=== PATIENT | male | born 1995 | race African-American/Black ===

== ENCOUNTER 2016-07-24 12:01 | Inpatient (IN) | payer OTHER ==
[~2016-07-24] VITALS: Ht 177.8 cm; Wt 103.2 kg
[2016-07-24] MEDS ORDERED: ONDANSETRON HCL 4 MG/2 ML VIAL IV ONE (12:45)
[2016-07-24] MEDS ORDERED: SODIUM CHLORIDE 0.9% 500 ML IV ONE (12:45)
[2016-07-24] MEDS ORDERED: hydrALAZINE HCL 20 MG/ML VL IV ONE ×3 (12:45→17:30)
[2016-07-24 13:08] LABS: INR 1.07 (0.9-1.15); Partial Thromboplastin Time 29.2 sec (22.64-33.71)
[2016-07-24 13:15] LABS: Basophils # (auto) 0 uL; Basophils % (auto) 0.3 % (0.0-2.0); Eosinophils # (auto) 0.1 uL; Eosinophils % (auto) 0.7 % (0.0-7.0); Hematocrit 31.4 % (41.0-53.0); Hemoglobin 10.5 g/dL (13.5-17.5); Lymphocytes # (auto) 1.1 uL; Lymphocytes % (auto) 12.7 % (10.0-50.0); Mean Corpuscular Hemoglobin 29.3 pg (28.0-32.0); Mean Corpuscular Hgb Conc. 33.5 g/dL (32.0-36.0); Mean Corpuscular Volume 87.2 fL (80.0-100.0); Monocytes # (auto) 0.7 uL; Monocytes % (auto) 7.4 % (0.0-12.0); Neutrophils # (auto) 7.1 uL; Neutrophils % (auto) 78.9 % (37.0-80.0); Red Cell Distribution Width 16.1 % (11.6-16.0)
[2016-07-24 13:21] LABS: Albumin 3.2 g/dL (3.4-5.0); BUN/Creatinine Ratio 7.2; Bilirubin, Total 1.3 mg/dL (0.2-1.0); Calcium 9.2 mg/dL (8.5-10.1); Total Protein 7.2 g/dL (6.4-8.2)
[2016-07-24 13:26] LABS: Potassium 2.8 mmol/L (3.5-5.1)
[2016-07-24 13:30] LABS: B-Type Natriuretic Peptide 1837.39 pg/mL (0-100); Temperature: 22.2 C (20.0-25.0)
[2016-07-24 13:33] LABS: Mean Platelet Volume 9.3 fL (7.4-10.4)
[2016-07-24 13:34] LABS: Platelet Count (auto) 67 10^3/uL (140-450)
[2016-07-24 13:36] LABS: Magnesium 2.5 mg/dL (1.6-2.6)
[2016-07-24] MEDS ORDERED: hydrALAZINE HCL 20 MG/ML VL ONE (14:08)
[2016-07-24] MEDS ORDERED: NITROGLYCERIN 50MG/250ML 250 ML IV ONE ×2 (15:05→15:15)
[2016-07-24] MEDS ORDERED: TEMAZEPAM 15 MG CAP PO PRN (15:15)
[2016-07-24] MEDS ORDERED: LORazepam 0.5 MG TAB PO PRN (15:15)
[2016-07-24] MEDS ORDERED: PROMETHAZINE HCL 25 MG/ML 1ML IV PRN (15:15)
[2016-07-24] MEDS ORDERED: MORPHINE SULF INJ 2 MG/ML SYRINGE 1ML IV PRN (15:15)
[2016-07-24] MEDS ORDERED: HYDROcodone-ACET 5/325MG TAB PO PRN (15:15)
[2016-07-24] MEDS ORDERED: LACTULOSE 20Gm/30ML SOLN PO PRN (15:15)
[2016-07-24] MEDS ORDERED: ACETAMINOPHEN 500 MG TAB PO PRN (15:15)
[2016-07-24] MEDS ORDERED: NITROGLYCERIN 0.4 MG SL TAB SL PRN (15:15)
[2016-07-24] MEDS ORDERED: ENALAPRIL MALEATE 10 MG TAB PO ONE (15:30)
[2016-07-24] MEDS ORDERED: ASPirin 81 mg TAB PO ONE (15:30)
[2016-07-24] MEDS ORDERED: ENOXAPARIN SOD 30 MG/0.3 ML SYRINGE SC ONE (15:30)
[2016-07-24] MEDS: NITROGLYCERIN 50MG/250ML 250 ML IV SCH (15:31)
[2016-07-24 15:41] LABS: Urine Bilirubin Negative (Negative); Urine Color Yellow (Yellow); Urine Glucose Normal (Normal); Urine Ketone Negative (Negative); Urine Nitrite Negative (Negative); Urine RBC 9 /hpf (0 - 3); Urine Urobilinogen Normal (Negative); Urine pH 6.5 (5.0-8.0)
[2016-07-24 16:02] LABS: Urine Blood 2+ /uL (Negative)
[2016-07-24] MEDS ORDERED: NICARDIPINE 25MG/250ML BAG KIT 250 ML IV SCH (17:30)
[2016-07-24] MEDS: MORPHINE SULF INJ 2 MG/ML SYRINGE 1ML IV PRN ×2 (17:39→18:22)
[2016-07-24] MEDS: NICARDIPINE 25MG/250ML BAG KIT 250 ML IV SCH ×2 (18:00→20:29)
[2016-07-24] MEDS: METOPROLOL TARTRATE 25 MG TAB PO SCH (22:00)
[2016-07-24] MEDS: ATORVASTATIN 20 MG TAB PO SCH (22:18)
[2016-07-25] MEDS: NICARDIPINE 25MG/250ML BAG KIT 250 ML IV SCH ×5 (05:26→23:30)
[2016-07-25 06:31] LABS: Basophils # (auto) 0 uL; Basophils % (auto) 0.2 % (0.0-2.0); Eosinophils # (auto) 0 uL; Eosinophils % (auto) 0.5 % (0.0-7.0); Hematocrit 31.5 % (41.0-53.0); Hemoglobin 10.6 g/dL (13.5-17.5); Lymphocytes # (auto) 0.8 uL; Lymphocytes % (auto) 8.5 % (10.0-50.0); Mean Corpuscular Hemoglobin 29.2 pg (28.0-32.0); Mean Corpuscular Hgb Conc. 33.6 g/dL (32.0-36.0); Mean Platelet Volume 9.4 fL (7.4-10.4); Monocytes # (auto) 0.7 uL; Monocytes % (auto) 7.2 % (0.0-12.0); Neutrophils # (auto) 7.6 uL; Neutrophils % (auto) 83.6 % (37.0-80.0); Platelet Count (auto) 94 10^3/uL (140-450); Red Cell Distribution Width 16.8 % (11.6-16.0)
[2016-07-25 06:55] LABS: Albumin 2.9 g/dL (3.4-5.0); BUN/Creatinine Ratio 7.6; Bilirubin, Total 0.7 mg/dL (0.2-1.0); Calcium 8.8 mg/dL (8.5-10.1); Total Protein 6.7 g/dL (6.4-8.2)
[2016-07-25 06:58] LABS: Potassium 2.9 mmol/L (3.5-5.1)
[2016-07-25] MEDS ORDERED: POTASSIUM CHL 20 Meq TABLET PO ONE (07:00)
[2016-07-25] MEDS ORDERED: ENALAPRIL MALEATE 10 MG TAB PO SCH ×2 (10:00)
[2016-07-25] MEDS ORDERED: ENOXAPARIN SOD 30 MG/0.3 ML SYRINGE SC SCH (10:00)
[2016-07-25] MEDS ORDERED: ASPirin 81 mg TAB PO SCH (10:00)
[2016-07-25] MEDS: METOPROLOL TARTRATE 25 MG TAB PO SCH ×2 (10:18→22:11)
[2016-07-25] MEDS ORDERED: cefTRIAXone 1GM/50ML D5W 50 ML IV ONE (10:45)
[2016-07-25] MEDS ORDERED: cloNIDine HCL 0.1 MG TAB PO PRN (11:00)
[2016-07-25 12:42] LABS: Basophils # (auto) 0 uL; Basophils % (auto) 0.1 % (0.0-2.0); Eosinophils # (auto) 0.1 uL; Eosinophils % (auto) 0.8 % (0.0-7.0); Hematocrit 31.7 % (41.0-53.0); Hemoglobin 10.6 g/dL (13.5-17.5); Lymphocytes # (auto) 0.9 uL; Lymphocytes % (auto) 9.4 % (10.0-50.0); Mean Corpuscular Hemoglobin 29.3 pg (28.0-32.0); Mean Corpuscular Hgb Conc. 33.3 g/dL (32.0-36.0); Monocytes # (auto) 0.8 uL; Monocytes % (auto) 8.8 % (0.0-12.0); Neutrophils # (auto) 7.7 uL; Neutrophils % (auto) 80.9 % (37.0-80.0); Platelet Count (auto) 112 10^3/uL (140-450); Red Cell Distribution Width 16.5 % (11.6-16.0); White Blood Cell 9.6 10^3/uL (4.4-10.8)
[2016-07-25] MEDS ORDERED: HEPARIN SODIUM (PORCINE) 5000 UNITS/ML 1ML VIAL IV ONE ×2 (12:45→21:45)
[2016-07-25] MEDS ORDERED: HEPARIN DRIP/D5W 100UNITS/ML 250 ML IV SCH (12:45)
[2016-07-25 12:55] LABS: INR 1.11 (0.9-1.15); Partial Thromboplastin Time 30.4 sec (22.64-33.71); Prothrombin Time 11.4 sec (9.37-12.3)
[2016-07-25] MEDS: BOOST PLUS 8 ounce PO SCH ×3 (13:05→22:00)
[2016-07-25] MEDS: NITROGLYCERIN 50MG/250ML 250 ML IV SCH (15:15)
[2016-07-25 20:29] LABS: BUN/Creatinine Ratio 7.9; Calcium 8.1 mg/dL (8.5-10.1); Potassium 3.1 mmol/L (3.5-5.1)
[2016-07-25] MEDS: ATORVASTATIN 20 MG TAB PO SCH (22:11)
[2016-07-26] VITALS (59 sets, daily range): BP systolic 128–203; BP diastolic 46–126
[2016-07-26 00:41] LABS: INR 1.07 (0.9-1.15); Partial Thromboplastin Time 43.1 sec (22.64-33.71)
[2016-07-26] MEDS: BOOST PLUS 8 ounce PO SCH ×2 (06:00→12:00)
[2016-07-26] MEDS ORDERED: HEPARIN DRIP/D5W 100UNITS/ML 250 ML IV SCH ×2 (06:30→07:56)
[2016-07-26 06:37] LABS: Basophils # (auto) 0 uL; Basophils % (auto) 0.3 % (0.0-2.0); Eosinophils # (auto) 0.2 uL; Hematocrit 31.8 % (41.0-53.0); Hemoglobin 10.7 g/dL (13.5-17.5); Lymphocytes # (auto) 1.8 uL; Lymphocytes % (auto) 21.9 % (10.0-50.0); Mean Corpuscular Hemoglobin 29.4 pg (28.0-32.0); Mean Corpuscular Hgb Conc. 33.7 g/dL (32.0-36.0); Mean Corpuscular Volume 87.2 fL (80.0-100.0); Mean Platelet Volume 10.6 fL (7.4-10.4); Monocytes # (auto) 0.7 uL; Monocytes % (auto) 8.7 % (0.0-12.0); Neutrophils # (auto) 5.6 uL; Neutrophils % (auto) 67.1 % (37.0-80.0); Platelet Count (auto) 139 10^3/uL (140-450); Red Cell Distribution Width 16.7 % (11.6-16.0); White Blood Cell 8.3 10^3/uL (4.4-10.8)
[2016-07-26 06:52] LABS: INR 1.06 (0.9-1.15); Partial Thromboplastin Time 31.1 sec (22.64-33.71); Prothrombin Time 10.9 sec (9.37-12.3)
[2016-07-26 07:18] LABS: Albumin 2.6 g/dL (3.4-5.0); BUN/Creatinine Ratio 8.1; Bilirubin, Direct 0.1 mg/dL (0-0.2); Bilirubin, Total 0.5 mg/dL (0.2-1.0); Calcium 8.5 mg/dL (8.5-10.1); Phosphorus 6.4 mg/dL (2.5-4.90); Potassium 3.3 mmol/L (3.5-5.1); Total Protein 6.1 g/dL (6.4-8.2); Uric Acid 9.3 mg/dL (3.5-7.2)
[2016-07-26] MEDS ORDERED: HEPARIN SODIUM (PORCINE) 5000 UNITS/ML 1ML VIAL SC ONE (08:00)
[2016-07-26 08:37] LABS: Urine Bilirubin Negative (Negative); Urine Color Yellow (Yellow); Urine Glucose Normal (Normal); Urine Ketone Negative (Negative); Urine Nitrite Negative (Negative); Urine RBC 1 /hpf (0 - 3); Urine Urobilinogen Normal (Negative)
[2016-07-26 08:46] LABS: Urine Blood 1+ /uL (Negative)
[2016-07-26] MEDS ORDERED: cefTRIAXone 1GM/50ML D5W 50 ML IV SCH (09:00)
[2016-07-26] MEDS: METOPROLOL TARTRATE 25 MG TAB PO SCH ×2 (09:46→21:58)
[2016-07-26] MEDS: NICARDIPINE 25MG/250ML BAG KIT 250 ML IV SCH (10:30)
[2016-07-26] MEDS ORDERED: IODIXANOL 320MG/ML 100ML BTL IV ONE (11:50)
[2016-07-26] MEDS ORDERED: LIDOCAINE 2%HCL (LOCAL ANESTH.) INJ 20ML MDV ONE (11:50)
[2016-07-26] MEDS ORDERED: MIDAZOLAM HCL 1MG/1ML-2 ML VIAL ONE (12:11)
[2016-07-26] MEDS ORDERED: ANGIOMAX 250 MG VIAL IV ONE (12:12)
[2016-07-26] MEDS ORDERED: fentaNYL CITRATE 100 MCG/2 ML VL ONE (12:12)
[2016-07-26] MEDS ORDERED: SODIUM CHL 0.9% 0 ML ONE (12:13)
[2016-07-26] MEDS ORDERED: amLODIPine BESYLATE 5 MG TAB PO ONE (13:45)
[2016-07-26] MEDS: hydrALAZINE HCL 25 MG TAB PO SCH ×2 (14:40→21:58)
[2016-07-26] MEDS ORDERED: POTASSIUM CHLORIDE 8 MEQ TAB PO ONE (15:15)
[2016-07-26] MEDS: ATORVASTATIN 20 MG TAB PO SCH (21:58)
[2016-07-27 05:10] LABS: Thyroid Peroxidase (TPO) Ab <6 IU/mL (0-34)
[2016-07-27] MEDS ORDERED: amLODIPine BESYLATE 5 MG TAB PO SCH (10:00)
[2016-07-27 19:06] LABS: Sjogren's Anti-SS-A Antibody <0.2 AI (0.0-0.9)
[2016-07-28 09:07] LABS: Anti-intermyofibrillar Ab Negative (Neg:<1:20); Anti-sarcolemma Antibody Negative (Neg:<1:20)
[2016-07-28 11:02] LABS: Hepatitis B Surface Antibody Negative
[2016-07-28 12:08] LABS: Antiproteinase 3 (PR-3) Ab <3.5 U/mL (0.0-3.5)
[2016-07-29 05:08] LABS: Albumin Urine 55.6 % (.); Gamma Globulin Urine 17.3 % (.)
== END 2016-07-26 21:57 | disposition short-term general hospital (02) | DRG 280 ==
LOC: EDSEX 12:01 → ER 12:01 → TELE 12:02 → ICU WEST 07-25 23:58
PROVIDERS: ADMIT Internal Medicine; ATTEND Internal Medicine
PROC: 4A023N7 Measurement of Cardiac Sampling and Pressure, Left Heart, Percutaneous Approach (ICD-10-PCS; principal; 2016-07-26)
PROC: B211YZZ Fluoroscopy of Multiple Coronary Arteries using Other Contrast (ICD-10-PCS; 2016-07-26)
DX: I21.4 Non-ST elevation (NSTEMI) myocardial infarction (principal); N18.6 End stage renal disease; N17.9 Acute kidney failure, unspecified; I50.42 Chronic combined systolic (congestive) and diastolic (congestive) heart failure; I13.2 Hypertensive heart and chronic kidney disease with heart failure and with stage 5 chronic kidney disease, or end stage renal disease; N39.0 Urinary tract infection, site not specified; D69.6 Thrombocytopenia, unspecified; D63.8 Anemia in other chronic diseases classified elsewhere; E87.6 Hypokalemia; F15.90 Other stimulant use, unspecified, uncomplicated; I16.0 Hypertensive urgency; Z82.49 Family history of ischemic heart disease and other diseases of the circulatory system; Z83.3 Family history of diabetes mellitus; Z84.1 Family history of disorders of kidney and ureter
CPT/HCPCS: 36415; 70450; 71010; 74176; 76775; 80048; 80053; 80061; 80076; 81001; 82306; 82533; 82550; 82570; 83520; 83540; 83550; 83615; 83735; 83874; 83880; 83970; 84100; 84156; 84166; 84300; 84443; 84484; 84550; 85025; 85045; 85610; 85652; 85730; 86141; 86160; 86225; 86235; 86256; 86703; 86704; 86706; 86708; 86803; 87081; 87086; 87340; 93005; 93306; 94761; 96361; 96374; 96375; 96376; G0434; J0696; J2250; J2405; Q9967

== ENCOUNTER 2016-08-17 21:27 | Emergency (ER) | payer OTHER ==
[~2016-08-17] VITALS: Ht 190.5 cm; Wt 99.8 kg
[2016-08-17 22:10] LABS: Basophils # (auto) 0 uL; Eosinophils # (auto) 0 uL; Eosinophils % (auto) 0.6 % (0.0-7.0); Hematocrit 30.3 % (41.0-53.0); Hemoglobin 10.2 g/dL (13.5-17.5); Lymphocytes # (auto) 0.5 uL; Lymphocytes % (auto) 5.8 % (10.0-50.0); Mean Corpuscular Hemoglobin 29.6 pg (28.0-32.0); Mean Corpuscular Hgb Conc. 33.6 g/dL (32.0-36.0); Mean Platelet Volume 7.9 fL (7.4-10.4); Monocytes # (auto) 0.6 uL; Monocytes % (auto) 7.4 % (0.0-12.0); Neutrophils # (auto) 6.9 uL; Neutrophils % (auto) 86.2 % (37.0-80.0); Platelet Count (auto) 122 10^3/uL (140-450); Red Cell Distribution Width 14.7 % (11.6-16.0)
[2016-08-17 22:26] LABS: Albumin 3.5 g/dL (3.4-5.0); BUN/Creatinine Ratio 7.1; Bilirubin, Total 0.7 mg/dL (0.2-1.0); Calcium 8.4 mg/dL (8.5-10.1); Potassium 3.2 mmol/L (3.5-5.1); Total Protein 7.5 g/dL (6.4-8.2)
[2016-08-17] MEDS ORDERED: SODIUM CHLORIDE 0.9% 1,000 ML IV ONE (22:45)
[2016-08-17] MEDS ORDERED: cefTRIAXone 1GM/50ML D5W 50 ML IV ONE (23:00)
[2016-08-17] MEDS ORDERED: ACETAMINOPHEN 500 MG TAB PO ONE (23:00)
[2016-08-18] MEDS ORDERED: IBUPROFEN 600 MG TAB PO ONE ×2 (00:02→00:15)
[2016-08-18] MEDS ORDERED: POTASSIUM CHL 20 Meq TABLET PO ONE (02:45)
[2016-08-18 03:00] VITALS: BP 145/94
== END 2016-08-18 03:20 | disposition home or self-care (01) ==
LOC: ER 21:39
DX: J06.9 Acute upper respiratory infection, unspecified (principal); E87.6 Hypokalemia; I12.0 Hypertensive chronic kidney disease with stage 5 chronic kidney disease or end stage renal disease; N18.6 End stage renal disease; Z99.2 Dependence on renal dialysis; F12.10 Cannabis abuse, uncomplicated
CPT/HCPCS: 36415; 36600; 71010; 80053; 82805; 83605; 85025; 87040; 87077; 87186; 93005; 96365; 99285; J0696; J7030

== ENCOUNTER 2022-04-04 08:05 | Emergency (ER) | payer OTHER, MEDICAID ==
[~2022-04-04] VITALS: Ht 188 cm; Wt 86.0 kg
[2022-04-04 09:14] LABS: Basophils # (auto) 0 10 ^3/uL (0-0.2); Basophils % (auto) 0.8 % (0.0-2.0); Eosinophils # (auto) 0.1 10 ^3/uL (0-0.8); Hematocrit 44.8 % (41.0-53.0); Hemoglobin 14.9 g/dL (13.5-17.5); Lymphocytes # (auto) 1.2 10 ^3/uL (0.4-5.4); Lymphocytes % (auto) 24.2 % (10.0-50.0); Mean Corpuscular Hemoglobin 31.9 pg (28.0-32.0); Mean Corpuscular Hgb Conc. 33.2 g/dL (32.0-36.0); Mean Corpuscular Volume 95.9 fL (80.0-100.0); Monocytes # (auto) 0.8 10 ^3/uL (0-1.3); Monocytes % (auto) 15.5 % (0.0-12.0); Neutrophils # (auto) 2.9 10 ^3/uL (1.6-8.6); Neutrophils % (auto) 58.5 % (37.0-80.0); Red Blood Cells 4.67 10^6/uL (4.5-5.90); Red Cell Distribution Width 16.1 % (11.8-14.3)
[2022-04-04 09:31] LABS: INR 1.17 (0.9-1.15); Partial Thromboplastin Time 35.9 sec (24.6-33.4)
[2022-04-04 09:40] VITALS: BP 145/83
[2022-04-04 17:39] LABS: Sodium 133 mmol/L (136-145)
[2022-04-04 17:40] LABS: Anion Gap 15 (5-15); BUN/Creatinine Ratio 4.2; Blood Urea Nitrogen 64 mg/dL (7-18); Carbon Dioxide 21 mmol/L (21-32); Chloride 97 mmol/L (98-107); GFR African American 5 mL/min; GFR Non-African American 4 mL/min; Glucose 92 mg/dL (74-106)
[2022-04-04 17:41] LABS: Alanine Aminotransferase 33 U/L (16-61); Albumin 4.3 g/dL (3.4-5.0); Alkaline Phosphatase 177 U/L (45-117); Aspartate Aminotransferase 23 U/L (15-37); Bilirubin, Total 0.4 mg/dL (0.2-1.0); Total Protein 9.5 g/dL (6.4-8.2)
[2022-04-04 17:45] LABS: Calcium 5.1 mg/dL (8.5-10.1); Potassium 6.2 mmol/L (3.5-5.1)
[2022-04-04] MEDS ORDERED: CALCIUM GLUC 1,000mg/50ml-NS 50 ML IV ONE (18:15)
[2022-04-04] MEDS ORDERED: DEXTROSE (50%) 50ML SYRG IV ONE (18:15)
[2022-04-04] MEDS ORDERED: SODIUM BICARBONATE 8.4 % INJ 50ML VIAL IV ONE (18:15)
[2022-04-04] MEDS ORDERED: InsuLIN REG 1unit/0.01ml Soln (100units/ml) IV ONE (18:15)
== END 2022-04-04 16:30 | disposition admitted as inpatient to this hospital (09) ==
LOC: ER 08:05 → EDBD 08:05 → ER 16:30
DX: I12.0 Hypertensive chronic kidney disease with stage 5 chronic kidney disease or end stage renal disease (principal); N18.6 End stage renal disease; F12.10 Cannabis abuse, uncomplicated; E87.5 Hyperkalemia; R51.9 Headache, unspecified
CPT/HCPCS: 36415; 70450; 71045; 74176; 80053; 83880; 84484; 85025; 85610; 85730; 93005